=== PATIENT | female | born 1985 | race African-American/Black ===

== ENCOUNTER 2016-11-10 17:27 | Observation (INO) ==
[2016-11-10] MEDS ORDERED: ONDANSETRON 4 MG/2 ML VIAL IV STA ×2 (17:50→18:44)
[2016-11-10] MEDS ORDERED: HYDROmorphone 2 MG/1 ML VIAL IV STA ×2 (17:50→18:43)
[2016-11-10] MEDS ORDERED: SODIUM CHLORIDE 0.9% 1,000 ML IV STA (17:50)
[2016-11-10] MEDS ORDERED: AMPICILLIN/SULBACTAM 3,000 MG in SODIUM CHLORIDE 0.9% 100 ML IV STA (17:50)
--- NOTE | 2016-11-10 17:56 | Emergency Department Note ---
Arrival - Arrival Chief Complaint: Urogenital - Female Stated Complaint: 9 WKS PREG/STOMACH CRAMPS ED Nursing Triage Note: pt to triage via wc with c/o having vaginal bleeing and cramping pt states onset saturday. states she went to doctor on saturday for same c/o and was told to follow up with her obgyn, pt did not follow up with her obgyn. pt states she is 9 weeks gestation. . estimated due date 2016 Mode of Arrival: Wheelchair Limitations: No Limitations Source: Patient Time Seen by Provider: 11/10/16 17:50 - History of Present Illness HPI Narrative: This 30-year-old black female presents with a history of 1 week of progressive pelvic cramps and spotting that has progressed to clots and tissue, weakness, and low-grade fever. The patient was evaluated in another ER in [place] and was told 4 days ago that everything was stable and to follow-up with her OB/ [employer] [employer]. The patient failed to follow-up with [facility] and because of progressive symptoms presents tonight. She denies any hematuria, urgency, dysuria, or frequency. Currently the patient appears to be in a considerable amount of discomfort from cramps but is otherwise in no acute medical distress. Onset (ago): week(s) (Patient presents 1 week post symptoms onset) Allergies/Adverse Reactions: Allergies Allergy/AdvReac Type Severity Reaction Status Date / Time No Known Allergies Allergy Verified 02/22/15 14:08 Home Medications: Home Medications Medication Instructions Recorded Confirmed Type No Known Home Medications [No 11/10/16 11/10/16 History Known Home Medications] Review of System - Review of System 12 point system: reviewed and no additional remarkable complaints except as stated - Review of System Constitutional: Present: as per HPI Genitourinary female: Present: as per HPI Medical,Surgical,& Family Hx - Medical History Musculoskeletal: No history of: Amputation Reproductive: No history of: Ectopic , Complication - Surgical History Thoracic Surgeries: Patient denies;: Organ Transplant Reproductive Surgeries: Patient denies;: Section - Family History Family History: Reports;: Family Diabetes (GRANDMOTHER), Family Hypertension ( MOTHER) Denies;: Family Anesthesia Reaction, Family Cancer, Family Heart Disease, Family Psychiatric Problems, Family Stroke - Social History Smoking Status: Never smoker Frequency of Alcohol Use: None Type of Drug Use: None Exam Physical Examination: GENERAL: Morbidly obese black female groaning on the gurney. HEENT: Normocephalic. No trauma. Moist mucous membranes. EOMI. PERRLA. ENT NML NECK: Supple. No adenopathy. CARDIAC: Regular. No murmurs. Heart rate 105 CHEST: Clear to auscultation. No respiratory distress. O2 sat 97% ABDOMEN: Soft. Tender lower quadrants of the pelvis as well as suprapubic area. Hypoactive bowel sounds. EXTREMITIES: No trauma. Normal ROM. No pedal edema. SKIN: No diaphoresis. No rash. NEURO: Alert. Neuro intact. No focal deficits. Vital Signs: Vital Signs Temperature 97.9 F 11/10/16 17:31 Pulse Rate 104 H 11/10/16 17:31 Respiratory Rate 17 11/10/16 17:31 Blood Pressure 90/39 11/10/16 17:31 O2 Sat by Pulse Oximetry 97 11/10/16 17:31 Course - Reevaluation(s) Reevaluation #1: Discussed with patient the results of her studies and her subsequent clinical course which would indicate a completed . However she has continued to have bleeding and cramping and for this reason we will admit her for overnight for observation. - Consultations Consultation #1: Discussed with Dr. May who will admit for further evaluation and therapy. Results - Labs CBC & BMP: 11/10/16 17:54 11/10/16 17:54 Labs: I have reviewed the laboratory and noted its gross normalcy - Diagnostic Findings Procedure: Ultrasound: image reviewed by me, report reviewed by me (OB: In process of aborting 10 week ) Disposition Clinical Impression: Spontaneous , Persistent hemorrhage post AB Case discussed with: patient Disposition: Still a Patient Condition: Stable Time of Disposition: 20:19
[2016-11-10] MEDS ORDERED: ONDANSETRON 4 MG/2 ML VIAL ONE ×3 (17:59→22:15)
[2016-11-10] MEDS ORDERED: HYDROmorphone 2 MG/1 ML VIAL ONE ×2 (17:59→21:01)
[2016-11-10 18:20] LABS: Basophils % 0.3 % (0.0-0.8); Eosinophils # 0.1 10*3/uL (0.0-0.87); Eosinophils % 0.7 % (0.00-10.9); Hematocrit 31.6 VOL% (35.7-47.0); Hemoglobin 10.5 GM/DL (12.0-16.0); Immature Granulocytes % 0.6 %; Immature Granulocytes Absolute 0.07 #; Lymphocytes % 17.1 % (21.3-54.2); Mean Corpuscular HGB Conc 33.2 GM/DL (32-36); Mean Corpuscular Hemoglobin 28 PG (27-34); Mean Corpuscular Volume 84.3 FL (87-102); Mean Platelet Volume 9.9 FL (9.6-12.0); Monocytes # 0.5 10*3/uL (0.11-0.8); Monocytes % 4.6 % (1.7-12.7); Neutrophils # 8.9 10*3/uL (1.4-7.4); Neutrophils % 76.7 % (38.7-73.9); Platelet Count 201 T/CUMM (130-400); Red Blood Count 3.75 MC/CUMM (3.8-5.5); Red Cell Distribution Width 14.5 % (9.3-17.3); White Blood Count 11.6 T/CUMM (4-12)
[2016-11-10] MEDS ORDERED: AMPICILLIN/SULBACTAM 3,000 MG VIAL ONE (18:20)
--- NOTE | 2016-11-10 18:27 | Ultrasound Report ---
Exam: US OB <= 14 weeks fetus Date: 11/10/2016 5:51 PM Comparison: 02/22/2015 Indication: Vaginal bleeding, cramping Technique:[Multiple transabdominal real-time scans were obtained. Color flow scans obtained. Ultrasound images were captured and stored.] Findings: The uterus is anteverted in position and measures 156 x 74 x 76 mm. Gestational sac in the lower uterine segment with open cervix. Decreased amount of amniotic fluid. It is difficult to determine the location of the placenta due to gestational age. Single intrauterine fetus with a heart rate 148 BPM. CRL corresponds to 10 weeks 5 days. The right ovary measures 30 x 21 x 25 mm. The left ovary measures 29 x 17 x 18 mm., Color flow documented in the ovaries with no adnexal mass or free fluid. Impression: Early intrauterine at 10 weeks 5 days +/- 1 week 0 days with EDC 06/03/2017. However the fetus is in the lower uterine segment consistent with impending . Findings were discussed with Dr. Menon at 6:20 PM on 11/10/2016. Critical test results PROCEDURE INTERPRETED AT [facility] DEPARTMENT OF RADIOLOGY Final Report Signed by: Dr. Demetria Patel
[2016-11-10 18:38] LABS: Apearance,Urine CLOUDY (Clear); Bilirubin,Urine Negative (Negative); Blood, Urine Moderate mg/dL (Negative); Glucose,Urine (UA) Negative (Negative); Ketones,Urine Negative (Negative); Mucus,Urine Many /LPF (Occasional); Nitrite,Urine Negative (Negative); Protein,Urine 30 MG/DL; RBC,Urine 28 /HPF (0-4); Squamous Epithelial Cell,Urine Occasional /HPF (0-10); Urine Color Yellow (Yellow); Urine Specific Gravity 1.031 (1.001-1.035)
[2016-11-10 18:49] LABS: PT Patient Result 10.7 SECS; Partial Thromboplastin Time 22.8 SECS (0-40)
[2016-11-10 18:59] LABS: Albumin 3.4 G/DL (3.4-5.0); Bilirubin,Total 0.4 MG/DL (0.2-1.0); Calcium 8.9 MG/DL (8.5-10.1); Osmolality,Calculated 281.3 MOS/KG (273-304); Potassium 3.6 MMOL/L (3.5-5.1); Total Protein 7.3 G/DL (6.4-8.3)
[2016-11-10] MEDS ORDERED: HYDROmorphone 2 MG/1 ML VIAL IV PRN (20:22)
[2016-11-10] MEDS ORDERED: ONDANSETRON 4 MG/2 ML VIAL IV PRN (20:22)
[2016-11-10] MEDS ORDERED: SODIUM CHLORIDE 0.9% 1,000 ML IV SCH (20:30)
--- NOTE | 2016-11-10 21:10 | OB/GYN History & Physical ---
History of Present Illness Chief complaint: vaginal bleeding History of present illness: Ms. Byrne is a 30 year old female This is a 30 y/o at 10weeks 5 days with vaginal bleeding and cramping. She presented to the ER a few hours ago and was noted to have an inevitable but the pt still has not passed the fetus. She has had 4 vaginal deliveries and her last delivery was a . The pt has not had any care for her current . Home Medications Medication Instructions Recorded Confirmed Type No Known Home Medications [No 11/10/16 11/10/16 History Known Home Medications] Allergies Allergy/AdvReac Type Severity Reaction Status Date / Time No Known Allergies Allergy Verified 02/22/15 14:08 Medical,Surgical,& Family Hx - Medical History Musculoskeletal: No history of: Amputation Reproductive: No history of: Ectopic , Complication - Surgical History Thoracic Surgeries: Patient denies;: Organ Transplant Reproductive Surgeries: Patient denies;: Section - Family History Family History: Reports;: Family Diabetes (GRANDMOTHER), Family Hypertension ( MOTHER) Denies;: Family Anesthesia Reaction, Family Cancer, Family Heart Disease, Family Psychiatric Problems, Family Stroke - Social History Smoking Status: Never smoker Frequency of Alcohol Use: None Type of Drug Use: None Exam [employer] - Constitutional General appearance: mild distress, over weight - Antepartum / Post Antpartum Exam Cervix -Dilatation: 2cm sac at external os - Cardiovascular Cardiovascular exam: Present: regular rate and rhythm - GI/Abdominal GI/Abdominal exam: Present: soft. Absent: guarding, rebound - Extremities Exam Extremities exam: Absent: calf tenderness - Neurological Exam Neurological exam: Present: alert, oriented X3 - Skin Skin exam: Present: normal color Assessment and Plan (1) Inevitable Status: Acute Assessment and plan: precautions given. options given versus expectant management vs suction D&C due to bleeding and pain over several ours. R/B/A/C reviewed with the pt and she has opted to proceed with a suction dilatation and curettage. Current Visit: Yes Results - Labs CBC & BMP: 11/10/16 17:54 11/10/16 17:54
[2016-11-10] MEDS ORDERED: HYDROmorphone 2 MG/1 ML VIAL IV ONE (21:11)
[2016-11-10 21:39] LABS: Hematocrit 29.3 VOL% (35.7-47.0); Hemoglobin 9.7 GM/DL (12.0-16.0)
[2016-11-10] MEDS ORDERED: LACTATED RINGERS 1,000 ML IV SCH (22:00)
[2016-11-10] MEDS ORDERED: PROPOFOL 200 MG/20 ML VIAL IV ONE (22:15)
[2016-11-10] MEDS ORDERED: LIDOCAINE 2% 5 ML VIAL ONE (22:15)
[2016-11-10] MEDS ORDERED: PHENYLEPHRINE 1 MG/10 ML SYRINGE IV ONE (22:15)
[2016-11-10] MEDS ORDERED: OXYTOCIN/LR 20 UNIT/1,000 ML BAG IV ONE ×3 (22:21→22:27)
[2016-11-10] MEDS ORDERED: MIDAZOLAM 2 MG/2 ML VIAL ONE (22:59)
[2016-11-10] MEDS ORDERED: fentaNYL 100 MCG/2 ML VIAL ONE (23:00)
--- NOTE | 2016-11-10 23:02 | Operative Note ---
Date of procedure: 11/10/16 Pre-op diagnosis: inevitable at 10 weeks 5 days Post-op diagnosis: same Procedure: Procedure: dilatation and curetage Findings: Bleeding from os was noted the os was open 2 cm and products of conception were at the external os but not in the vaginal vault and the uterus was anteverted and approximately 11-12 weeks size The patient was consented for a suction dilatation and curettage wrist benefits alternatives and complications were reviewed with patient the patient was amenable to the procedure. The patient was thus taken back to the operating room where general anesthesia was found be adequate the patient was prepped and draped in the usual sterile fashion Carefully Placed in the Dorsal Lithotomy Position. A Pelvic Exam Was Performed and As Mentioned above the Uterus Was Enlarged and the Cervical Os Was Open Approximately 2 Cm and Large Clots Were Noted in the Vaginal Vault but the Products of Conception Were Just at the External Os. At This Time a Speculum Was Placed in the Patient's Vagina and the Anterior Lip of the Cervix Was Grasped with a Single-Tooth Tenaculum and Using a Ring Forcep the Fetus Was Easily Grasped and Removed. Once This Was Removed There Was Minimal Bleeding but a Sharp Curettage Was Performed until the Placental Tissue and Rest of the Products of Contact Conception Were Removed from the Uterus. Pitocin Was Started and the Uterus Was Noted to Be Firm. The single-tooth tenaculum was removed from the anterior cervix and there was no bleeding from that site and there was only minimal bleeding once the products of conception were removed from the uterine cavity after inspecting the area for several minutes after the procedure. Once it was done all instruments were removed from patient's vagina as well as the sponges and laps sponge and instrument counts were correct 3. Anesthesia: GETA Surgeon / Physician: Erika Hurtado Estimated blood loss: other (75) Urine output: 125 Specimens: other (fetus/POC) Condition: stable Disposition: floor Results - Labs CBC & BMP: 11/10/16 21:20 11/10/16 17:54 Discharge Plan - Discharge Data Disposition: Disch To Home/Self Care Condition at Discharge: Stable Discharge Diet: advance to your usual diet Activity: no lifting Hygiene: may shower Weight Bearing at Discharge: full weight bearing Contact your physician if you experience:: fever over 101, Difficulty voiding, Redness or swelling, Nausea/Vomiting, Shortness of breath, Bleeding, pain uncontrolled by pain medications - Discharge Medications No Action No Known Home Medications [No Known Home Medications] - Follow Up or Referral Follow Up: Erika Hurtado MD [Physician] - 1 Week - Forms/Instructions
--- NOTE | 2016-11-10 23:12 | Anesthesia ---
Anesthesia Post OP - Post Ansesthetic Evaluation Patient seen in post op: Yes Resp: within normal limits CV: within normal limits Mental: within normal limits Temp: within normal limits [id number]: within normal limits Nausea and Vomiting: within normal limits Pain: within normal limits
[2016-11-10] MEDS ORDERED: IBUPROFEN 800 MG TABLET PO PRN (23:36)
[2016-11-10] MEDS ORDERED: MAGNESIUM HYDROXIDE SUSP 30 ML UDCUP PO PRN (23:36)
[2016-11-10] MEDS ORDERED: ACETAMINOPHEN 325 MG TABLET PO PRN (23:36)
[2016-11-10] MEDS ORDERED: BISACODYL 10 MG SUPP RECTAL PRN (23:36)
[2016-11-10] MEDS ORDERED: DOCUSATE SODIUM 100 MG CAPSULE PO PRN (23:36)
[2016-11-11 07:26] VITALS: BP 101/56
[2016-11-11] MEDS ORDERED: PANTOPRAZOLE 40 MG TABLET PO SCH (09:00)
[2016-11-11 09:15] LABS: Basophils % 0.3 % (0.0-0.8); Eosinophils # 0.1 10*3/uL (0.0-0.87); Eosinophils % 1.4 % (0.00-10.9); Immature Granulocytes % 0.4 %; Immature Granulocytes Absolute 0.04 #; Lymphocytes # 1.6 10*3/uL (1.4-4.0); Lymphocytes % 16.5 % (21.3-54.2); Mean Corpuscular HGB Conc 33.3 GM/DL (32-36); Mean Corpuscular Hemoglobin 28 PG (27-34); Mean Corpuscular Volume 83.3 FL (87-102); Mean Platelet Volume 10.1 FL (9.6-12.0); Monocytes # 0.4 10*3/uL (0.11-0.8); Monocytes % 3.8 % (1.7-12.7); Neutrophils # 7.4 10*3/uL (1.4-7.4); Neutrophils % 77.6 % (38.7-73.9); Platelet Count 164 T/CUMM (130-400); Red Blood Count 2.88 MC/CUMM (3.8-5.5); Red Cell Distribution Width 14.6 % (9.3-17.3); White Blood Count 9.5 T/CUMM (4-12)
[2016-11-11 09:49] LABS: Calcium 7.7 MG/DL (8.5-10.1); Osmolality,Calculated 276.4 MOS/KG (273-304); Potassium 3.7 MMOL/L (3.5-5.1)
--- NOTE | 2016-11-12 12:41 | Pathology Report from [facility] ---
ACCESSION # : [id number] PATIENT NAME : Hossein Byrne ORDERING DR : Erika May MD CLINICAL HX: Vaginal bleeding - Inevitable POST-OP DX: Same SPECIMEN INFO: Products of inevitable GROSS DESCRIPTION: The specimen is received in formalin labeled with the patient 's name and consists of multiple fragments of hemorrhagic lentz membranous tissue and clotted blood grossly consistent with placental tissue that measures 10.2 x 9.0 cm. Also in the container is a 6.0 gram fetus that has a crown to rump measurement of 4.1 cm and a crown to heel measurement of 5.2 cm. The abdominal cavity is hemorrhagic and displays gastrointestinal tract outside the body that is consistent with gastroschisis. Gross only. Technical Writer tissue of placenta submitted in cassettes A and B. DIAGNOSIS FOR HOSSEIN BYRNE: UTERINE CONTENTS: Immature chorionic villi, decidual tissue and hemorrhage consistent with incomplete . SERVICE DATE: 11/11/2016 REPORT DATE: 11/12/2016 PATHOLOGIST: Tri Gibbs III, M.D. MTDD
== END 2016-11-11 13:05 | disposition home or self-care (01) ==
LOC: N.ED 17:27 → N.EDINP 20:19 → INTOOBSV 20:19 → N.OB 20:47
PROVIDERS: ADMIT Obstetrics & Gynecology; ATTEND Obstetrics & Gynecology